=== PATIENT | female | born 1965 | race Caucasian/White ===

== ENCOUNTER → 2019-08-11 | Outpatient (CLI) | payer OTHER | LOC: M.ULTRA 07:22 | DX: R10.9 Unspecified abdominal pain (principal); R74.8 Abnormal levels of other serum enzymes ==

== ENCOUNTER 2019-11-29 11:33 | Emergency (ER) | payer OTHER ==
[~2019-11-29] VITALS: Ht 157.5 cm; Wt 53.1 kg
[2019-11-29] MEDS ORDERED: SUPER THERAVIT1 EACH PO (11:42)
[2019-11-29 12:03] LABS: ABSOLUTE LYMPHOCYTES 1.2 thou/uL (0.8-5.3); ABSOLUTE MONOCYTES 0.6 thou/uL (0.0-1.2); ABSOLUTE NEUTROPHILS 7.6 thou/uL (1.6-8.1); BASOPHILS 0.4 %; EOSINOPHILS 0.3 %; HEMOGLOBIN 13.5 gm/dL (12.0-15.0); LYMPHOCYTES 12.5 %; MCH 31.4 pg (26.0-34.0); MCHC 34.6 g/dL (28.0-37.0); MCV 90.9 fL (80.0-100.0); MONOCYTES 6.3 %; NUCLEATED RBCS 0 /100WBC; PLATELET COUNT* 248 thou/uL (150-400); POLYS 80.5 %; RBC 4.29 mil/uL (4.20-5.00); RDW-CV 12.3 % (10.5-14.5); WBC 9.5 thou/uL (4.0-11.0)
[2019-11-29 12:11] LABS: CALCIUM 8.8 mg/dL (8.5-10.1); CREATININE 0.8 mg/dL (0.6-1.3); POTASSIUM 3.9 mmol/L (3.5-5.1)
[2019-11-29 12:15] LABS: ALBUMIN 4.1 g/dL (3.4-5.0); TOTAL BILIRUBIN 0.7 mg/dL (<0.1-1.0); TOTAL PROTEIN 8.1 g/dL (6.4-8.2)
[2019-11-29 12:32] LABS: URINE BILIRUBIN NEGATIVE (Negative); URINE BLOOD TRACE (Negative); URINE CLARITY CLEAR; URINE COLOR YELLOW; URINE GLUCOSE-RANDOM NEGATIVE (Negative); URINE KETONES NEGATIVE (Negative); URINE LEUKOCYTES-REFLEX NEGATIVE (Negative); URINE NITRITE-REFLEX NEGATIVE (Negative); URINE PROTEIN NEGATIVE (Negative); URINE UROBILINOGEN 0.2 E.U./dl (0.2-1.0)
--- NOTE | 2019-11-29 14:52 | EKG ---
[place] [address] ELECTROCARDIOGRAM REPORT Name: TIM MARTIN Room: [facility]#: [id number] Admission: 11/29/19 Attend Phys: Discharge: Date of : 69 Date of Service: 11/29/19 1207 Report #: [id number] THIS REPORT FOR: //name// [facility] ED Test Date: 2019-11-29 Test Time: 12:07:44 Pat Name: TIM MARTIN Department: Room: Gender: F Patient Transition Specialist: [facility] [place] 1965 Requested By: Bishop Dumont Order Number: [id number] MD: Godfrey Leslie Measurements Intervals [place] Rate: 88 P: 86 FL: 166 QRS: 76 QRSD: 68 T: 41 QT: 352 QTc: 426 Interpretive Statements Sinus rhythm septal infarct, age indeterminate No previous ECG available for comparison Electronically Signed On 11-29-2019 14:50:34 CDT by Godfrey Leslie [email or web address] <ELECTRONICALLY SIGNED> By: Godfrey Leslie MD, [facility] 11/29/19 1450 1206 06 Godfrey Leslie MD, FACC /EPI
[2019-11-29 14:54] VITALS: BP 107/57
== END 2019-11-29 14:59 | disposition home or self-care (01) ==
LOC: M.ERS 11:33
PROVIDERS: Family Medicine
DX: K59.00 Constipation, unspecified (principal); R33.9 Retention of urine, unspecified; R61 Generalized hyperhidrosis; Z88.2 Allergy status to sulfonamides

== ENCOUNTER → 2020-02-16 | Outpatient (CLI) | payer OTHER ==
[~2020-02-16] MED LIST: SUPER THERAVIT1 EACH PO
== END ==
LOC: M.LAB 08:48
PROVIDERS: ATTEND Internal Medicine Gastroenterology
DX: Z01.812 Encounter for preprocedural laboratory examination (principal); Z11.59 Encounter for screening for other viral diseases; K59.00 Constipation, unspecified